=== PATIENT | female | born 1990 | race Caucasian/White ===

== ENCOUNTER → 2017-04-26 | Outpatient (CLI) | payer BC, OTHER ==
[~2017-04-26] MED LIST: PRENTAB26 PO
[2017-04-26 12:06] LABS: URINE APPEARANCE CLEAR (CLEAR); URINE BILIRUBIN NEG (NEG); URINE COLOR YELLOW; URINE EPITHELIAL CELL AUTO >30 /lpf (0-5); URINE NITRITE NEG (NEG); URINE SPECIFIC GRAVITY 1.022 (1.000-1.030); UROBILINOGEN NEG (NEG)
[2017-04-26 12:14] LABS: MANUAL MICROSCOPIC REQUIRED? NO; REVIEW REQ? NO
== END | disposition home or self-care (01) ==
LOC: C.LABSPEC 10:52
PROVIDERS: ATTEND Obstetrics & Gynecology
DX: Z34.91 Encounter for supervision of normal pregnancy, unspecified, first trimester (principal)

== ENCOUNTER → 2017-05-04 | Outpatient (CLI) | payer OTHER | END | disposition home or self-care (01) | LOC: C.PAPS 14:07 | PROVIDERS: ATTEND Obstetrics & Gynecology | DX: Z34.91 Encounter for supervision of normal pregnancy, unspecified, first trimester (principal); Z3A.00 Weeks of gestation of pregnancy not specified ==

== ENCOUNTER → 2017-05-04 | Outpatient (CLI) | payer OTHER ==
[2017-05-04 13:21] LABS: BASO % 0.5 %; BASO ABS # 0.02 K/uL (0-0.2); COMPLETE YES; EOS % 1.7 %; HEMATOCRIT 37.3 % (37-47); IG% 0.5 %; LYMPH % 39.5 %; LYMPH ABS # 1.62 K/uL (1.2-3.4); MEAN CELL VOLUME 81.6 fL (80-100); MEAN CORPUSCULAR HEMOGLOBIN 29.1 pg (25-34); MEAN CORPUSCULAR HGB CONC 35.7 g/dl (32-36); MONO % 12.2 %; NEUT % 45.6 %; PLATELET COUNT 216 K/uL (130-400); RED BLOOD COUNT 4.57 M/uL (4.2-5.4)
[2017-05-08 10:37] LABS: CHLAMYDIA TRACH RNA*** NOT DETECTED (NOT DETECTED); GC (NEIS GONORRHOEAE)RNA** NOT DETECTED (NOT DETECTED)
== END | disposition home or self-care (01) ==
LOC: C.LAB1850 12:27
PROVIDERS: ATTEND Obstetrics & Gynecology
DX: Z34.91 Encounter for supervision of normal pregnancy, unspecified, first trimester (principal); Z3A.00 Weeks of gestation of pregnancy not specified

== ENCOUNTER → 2017-06-16 | Outpatient (CLI) | payer OTHER ==
[2017-06-16 17:53] LABS: GTGD 50 Grams
== END | disposition home or self-care (01) ==
LOC: C.LAB1850 16:34
PROVIDERS: ATTEND Obstetrics & Gynecology
DX: Z34.91 Encounter for supervision of normal pregnancy, unspecified, first trimester (principal); Z3A.00 Weeks of gestation of pregnancy not specified

== ENCOUNTER → 2017-09-08 | Outpatient (CLI) | payer OTHER ==
[2017-09-08 16:37] LABS: HEMATOCRIT 33.2 % (37-47); HEMOGLOBIN 11.2 g/dL (12.0-16.0)
== END | disposition home or self-care (01) ==
LOC: C.LAB1850 15:31
PROVIDERS: ATTEND Obstetrics & Gynecology
DX: Z34.83 Encounter for supervision of other normal pregnancy, third trimester (principal)

== ENCOUNTER → 2017-09-28 | Outpatient (CLI) | payer OTHER | END | disposition home or self-care (01) | LOC: C.LAB1850 07:54 | PROVIDERS: ATTEND Obstetrics & Gynecology | DX: O28.1 Abnormal biochemical finding on antenatal screening of mother (principal) ==

== ENCOUNTER → 2017-11-03 | Outpatient (CLI) | payer OTHER | END | disposition home or self-care (01) | LOC: C.LABSPEC 17:38 | PROVIDERS: ATTEND Obstetrics & Gynecology | DX: Z34.83 Encounter for supervision of other normal pregnancy, third trimester (principal) ==

== ENCOUNTER 2017-11-26 05:07 | Inpatient (IN) | payer OTHER ==
[~2017-11-26] VITALS: Ht 157.5 cm; Wt 86.5 kg
[2017-11-26 05:32] LABS: HEMATOCRIT 33.1 % (37-47); HEMOGLOBIN 10.7 g/dL (12.0-16.0); MEAN CELL VOLUME 72.7 fL (80-100); MEAN CORPUSCULAR HEMOGLOBIN 23.5 pg (25-34); MEAN PLATELET VOLUME 10.4 fL (7.4-10.4); PLATELET COUNT 222 K/uL (130-400); RED CELL DISTRIBUTION WIDTH CV 14.5 % (11.5-14.5); RED CELL DISTRIBUTION WIDTH SD 38.5 fL (36.4-46.3); WHITE BLOOD COUNT 10.53 K/uL (4.8-10.8)
[2017-11-26] MEDS ORDERED: OXYTOCIN 30 UNITS/500ML NSS IV ONE (05:34)
[2017-11-26 05:56] LABS: MEAN CORPUSCULAR HGB CONC 32.3 g/dl (32-36)
[2017-11-26 06:04] VITALS: Ht 157.5 cm; Wt 86.5 kg
[2017-11-26] MEDS ORDERED: LACTATED RINGER'S 1000ML 1,000 ML IV SCH (06:08)
--- NOTE | 2017-11-26 06:11 | Vaginal Delivery Summary ---
Vaginal Delivery Summary Gudelia Choi is a who presented at 39-2/7 weeks in active labor. I was called to the bedside when the patient became completely dilated with an urge to push. the patient was quickly prepped and draped for delivery. she was coached through her second stage of labor and delivered the head of a vigorous male with no nuchal cord identified followed by the anterior and posterior shoulders with no difficulty whatsoever. the placenta then delivered spontaneously. Examination of the cervix vagina and perineum revealed a second- degree perineal laceration. This was infiltrated with 1% plain lidocaine after discussing with the patient, and then repaired in the usual fashion using running locked Vicryl suture. At the completion of repair the area was hemostatic and well approximated, and mother and infant were both in good condition.
[2017-11-26] MEDS ORDERED: SUPERCREAM 0.870 % 15GM JAR EXT PRN (06:15)
[2017-11-26] MEDS ORDERED: OXYTOCIN 30 UNITS/500ML NSS IV PRN (06:15)
[2017-11-26] MEDS ORDERED: DIPHTHERIA/TETANUS/PERTUSSIS 0.5 ML SYR/VIAL IM. ONE (06:15)
[2017-11-26] MEDS ORDERED: OXYCODONE/ACETAMINOPHEN 5-325 TAB PO PRN (06:15)
[2017-11-26] MEDS ORDERED: BENZOCAINE 20% AER SPR 82.5 GM CAN EXT PRN (06:15)
[2017-11-26] MEDS ORDERED: LANOLIN OINT EXT PRN (06:15)
[2017-11-26] MEDS ORDERED: HYDROCORTISONE ACETATE 25 MG SUPP PR PRN (06:15)
[2017-11-26] MEDS ORDERED: ACETAMINOPHEN 325 MG TAB PO PRN (06:15)
[2017-11-26] MEDS: FERROUS SULFATE 325 MG TAB PO SCH (08:00)
[2017-11-26] MEDS: DOCUSATE SODIUM 100 MG CAP PO SCH ×2 (08:00→19:26)
[2017-11-26] MEDS: IBUPROFEN 600 MG TAB PO PRN ×2 (09:07→17:07)
[2017-11-26 09:40] VITALS: BP 122/69; PULSE 71; TEMP 36.7
[2017-11-26 12:55] VITALS: BP 112/64; PULSE 80; TEMP 36.7
[2017-11-26 19:20] VITALS: BP 125/59; PULSE 87; TEMP 36.7
[2017-11-26 23:15] VITALS: BP 122/68; PULSE 75; TEMP 36.6
[2017-11-27] MEDS: IBUPROFEN 600 MG TAB PO PRN ×2 (01:42→08:09)
[2017-11-27 03:30] VITALS: BP 100/63; PULSE 77; TEMP 36.6
[2017-11-27 06:33] LABS: HEMATOCRIT 29.7 % (37-47); HEMOGLOBIN 9.6 g/dL (12.0-16.0)
--- NOTE | 2017-11-27 07:13 | Progress Note ---
Subjective Nov 27, 2017. Subjective conversation w/ patient, physical exam Ambulation: ambulating normally Voiding: no voiding problems Passing Gas: Yes Diet Tolerance: Regular Diet Lochia: Small Feeding Type: Breast Feeding Pain: minimal, well controlled Comment: seen and assessed at bedside, no acute events overnight Review of Systems Constitutional: No fever, No chills Respiratory: No cough, No shortness of breath Cardiac: No chest pain, No edema Abdomen: No nausea, No vomiting no headaches or calf pain Objective Vital Signs Date Time Temp Pulse Resp B/P (MAP) Pulse Ox O2 Delivery O2 Flow Rate FiO2 11/27/17 03:30 36.6 77 18 100/63 (75) Room Air 11/26/17 23:15 Room Air 11/26/17 23:15 36.6 75 18 122/68 (86) Room Air 11/26/17 19:20 36.7 87 18 125/59 (81) Room Air 11/26/17 12:55 36.7 80 20 112/64 (80) 11/26/17 09:40 36.7 71 20 122/69 (86) Physical Exam General Appearance: WELL-APPEARING, NO APPARENT DISTRESS Respiratory/Chest: chest non-tender, lungs clear, normal breath sounds Cardiovascular: regular rate, rhythm, no edema, no murmur Abdomen: normal bowel sounds, non tender, soft Fundus: Firm, Non-Tender, Relation to Umbilicus (2-3 below) Extremities: normal range of motion, non-tender, normal inspection, no pedal edema, no calf tenderness Laboratory Results Last 24 Hours Test 11/27/17 06:14 Hemoglobin 9.6 g/dL Hematocrit 29.7 % Medications Current Inpatient Medications Medications (Trade) Dose Ordered Sig/Hannah Route Start Time Stop Time Status Last Admin Dose Admin Lactated Ringer's 1,000 ml @ 125 mls/hr Q8H IV 11/26/17 06:08 12/26/17 06:07 11/26/17 06:58 125 MLS/HR Oxytocin (Pitocin IV) 30 units UD PRN IV 11/26/17 06:15 12/26/17 06:14 Benzocaine (Dermoplast Aero Spr) 1 appln PRN PRN EXT 11/26/17 06:15 12/26/17 06:14 11/26/17 15:51 1 APPLN Cocaine HCl (Supercream 0.870% Cr) BID PRN EXT 11/26/17 06:15 12/10/17 06:14 Hydrocortisone Acetate (Anusol Hc Supp) 25 mg BID PRN GA 11/26/17 06:15 12/26/17 06:14 Lanolin (Lanolin Oint) PRN PRN EXT 11/26/17 06:15 12/26/17 06:14 Ibuprofen (Motrin Tab) 600 mg Q4H PRN PO 11/26/17 06:15 12/26/17 06:14 11/27/17 01:42 600 MG Acetaminophen (Tylenol Tab) 650 mg Q6H PRN PO 11/26/17 06:15 12/26/17 06:14 Oxycodone/ Acetaminophen (Percocet 5-325mg Tab) 1 tab Q4H PRN PO 11/26/17 06:15 12/10/17 06:14 Docusate Sodium (coLACE CAP) 100 mg BID PO 11/26/17 08:00 12/26/17 07:59 11/26/17 19:26 100 MG Ferrous Sulfate (Feosol Tab) 325 mg DAILY PO 11/26/17 08:00 12/26/17 07:59 Assessment and Plan Post- Day#: 1 Continue Routine Care: 27 yo PPD 1 s/p Pt doing well clinically Continue routine care: encourage ambulation and Pain control with meds prn Home likely tomorrow Resident Physician Supervision Note: I interviewed and examined the patient. Discussed with Dr. Betancourt and agree with findings and plan as documented in the note. Any exceptions or clarifications are listed here: [None] Documented By: Flory Garcia Resident Tracking Resident Involvement: Resident Care Provided Care Provided: OB Delivery
[2017-11-27 08:00] VITALS: BP 105/66; PULSE 74; TEMP 36.5; O2SAT 98
--- NOTE | 2017-11-27 08:02 | Discharge Instructions ---
Discharge Instructions Date of Service Nov 27, 2017. Admission Reason for Admission: LABOR Discharge Discharge Diagnosis / Problem: Delivery Discharge Goals Goal(s): Routine recovery after delivery Medications Continue Dispensed Medications: supercream, dermaplast Activity Recommendations Activity Limitations: per Instructions/Follow-up section . Instructions / Follow-Up Instructions / Follow-Up ACTIVITY RECOMMENDATIONS: * Gradual return to full activity over the next 2-3 weeks. * No lifting - nothing heavier than baby over the next 2-3 weeks. * Do not engage in vigorous exercise, sexual activity or sports until cleared by your physician. * Do not drive or operate any motorized equipment until cleared by your physician. * You may shower/bathe daily. MEDICATIONS: For discomfort or pain, you may use Acetaminophen (Tylenol), Ibuprofen (Advil), or Naproxen (Aleve) following the package directions. For constipation you may use Colace following the package directions. BREAST CARE: If you are not breast feeding: * Wear a supportive bra 24 hours a day for one to two weeks. * Avoid stimulating your breasts and nipples as much as possible during the first few weeks after delivery. * When taking a shower, have the warm water hit your back, not breasts. * When your breasts feel full, apply ice packs. Usually three to four times a day helps ease the discomfort. * Take a mild pain medication (Tylenol / Motrin) when you are uncomfortable. If breast feeding: * Use breast milk to lubricate nipples. Lansinoh cream may be used for sore nipples. You do not need to remove cream prior to breast feeding. If using a different brand of cream, check the label for directions regarding removal of cream prior to nursing. * Wear a supportive bra. * If having problems with breasts or breast feeding, call a safety and health consultant or your health care provider. EPISIOTOMY CARE: After delivery, if you have an episiotomy (stitches), the following steps will ease discomfort and aid healing. * For the first 24 hours after delivery, place ice packs next to your episiotomy to help reduce swelling. * After the first 24 hour-period, sitz baths, either portable or in the tub, are suggested. A shower with a shower arm sprayed over the episiotomy may be comforting. * Siria care should be done after each voiding and bowel movement. Squirt warm water from a plastic bottle over the perineum (region of the body between the anus and urinary opening) and pat dry. * Use Dermoplast to ease discomfort. Shake container. [place] directly over the episiotomy. Place a Tucks on a clean sanitary pad next to your episiotomy. SPECIAL CARE INSTRUCTIONS: When you are discharged from the hospital, it is important for you to follow the instructions listed below: * During the first week at home, you should be able to care for yourself and your baby. In addition, the usual light household activities are encouraged. * Limit your activities to the way you feel. Do not try to clean the house or move furniture. Be sensible. * If you actively engage in sports and have done so up until the time of your delivery, you may resume these activities as soon as you feel able. This may take up to one month or even longer. Use good judgment. * Continue to take your vitamins for at least six weeks after the of your baby. * Your diet need not be limited unless you were on a special diet before your delivery. Breast-feeding mothers need around 2500 calories per day and at least 64-80 ounces of fluid per day (8 to 10 glasses). * You should eat foods from the four major food groups. Crash diets or fad diets are to be avoided. Eating lean meats, fresh fruits and vegetables, low-fat dairy products, high fiber foods and a regular exercise program, will help you get back to your pre- weight without putting your health at risk. * Constipation is sometimes a problem after delivery. Take a mild laxative as needed. If breast feeding, Milk of Magnesia is acceptable to use. You may use a suppository or Fleets enema if no episiotomy. * A daily shower or tub bath is suggested. Be sure to thoroughly and gently dry the perineum. * A bloody vaginal discharge will usually continue until around four weeks post . A small amount of bleeding may continue for as long as six weeks. Vaginal discharge changes from the bright red bleeding after delivery to pink then brownish and finally yellowish-pink before becoming white and disappearing. * Bleeding may increase with activity. Your first period may come in 4-8 weeks. If you are breast feeding, your period may be delayed even longer. * [place] (sex) can begin whenever both you and your partner feel comfortable and do not have any form of genital infection. It is recommended that you wait at least six weeks for internal and external healing to occur. If you have questions, please talk to your health care practitioner. A condom should be used to prevent infection and . * Foreplay, gentle intercourse and lubrication is very important the first several times to prevent pain. A water-based lubricant such as K-Y jelly or Astroglide may be used. * If you have RH negative blood and your baby is RH positive, you will receive RHOGAM by injection prior to discharge. The nurse will give you a card to keep with you that has the date and place that you received RHOGAM after delivery. * During your care, you had a Rubella screen done to check for the presence of rubella antibodies in your blood. If your test was negative, you will receive a Rubella vaccine prior to discharge. This vaccine may cause a fever, soreness at the injection site and flu-like symptoms. If these symptoms persist, notify your health care practitioner. is not advised for one month after a Rubella vaccine. * Verbalizes understanding of car seat law as reviewed with patient nursing. * Car Seat hand-out given and reviewed with patient by nursing. * Shaken baby information reviewed with patient by nursing. Call you doctor if: * Heavy bleeding (saturating several pads an hour) or passing clots the size of your fist. * A fever >101 degrees F (38.3 degrees C) on two occasions four hours apart and /or chills. * Unusual pain in the pelvic or vaginal areas. * "Baby Blues" lasting longer than two weeks. If you have any questions or concerns, call your health care practitioner at . FOLLOW UP VISIT: * Please call the office at to schedule a 6 week examination. It is important you keep this appointment. It is important for you to make arrangements for either yearly or twice yearly check-ups thereafter. Current Hospital Diet Patient's current hospital diet: Regular OB Diet Discharge Diet Recommended Diet: Regular Diet Pending Studies Studies pending at discharge: no Medical Emergencies . Who to Call and When: Medical Emergencies: If at any time you feel your situation is an emergency, please call 911 immediately. . Non-Emergent Contact Non-Emergency issues call your: Primary Care Provider . . "Provider Documentation" section prepared by Flory Garcia. . [place] Drug Monitoring Program Search Results: no issues identified
[2017-11-27] MEDS: FERROUS SULFATE 325 MG TAB PO SCH (08:09)
[2017-11-27] MEDS: DOCUSATE SODIUM 100 MG CAP PO SCH (08:09)
[2017-11-27 15:50] VITALS: BP_DIAS 66; PULSE 74; TEMP 36.5
== END 2017-11-27 15:50 | disposition home or self-care (01) | DRG 775 ==
LOC: C.OPB 05:07 → C.LD 05:07 → C.OPB 05:16 → C.OBG 09:46 → EDSTATUS 12-01 05:05
PROVIDERS: ADMIT Obstetrics & Gynecology; ATTEND Obstetrics & Gynecology
PROC: 10E0XZZ Delivery of Products of Conception, External Approach (ICD-10-PCS; principal; 2017-11-26)
PROC: 0KQM0ZZ Repair Perineum Muscle, Open Approach (ICD-10-PCS; principal; 2017-11-26)
DX: O62.3 Precipitate labor (principal); O70.1 Second degree perineal laceration during delivery; Z37.0 Single live birth; Z3A.39 39 weeks gestation of pregnancy